=== PATIENT | female | born 1940 | race Hispanic/Latino ===

== ENCOUNTER 2018-06-05 10:44 | Emergency (ER) | payer MEDICARE, BC ==
[2018-06-05 10:45] VITALS: BMI 40.4
[2018-06-05 11:10] VITALS: RESP 16
--- NOTE | 2018-06-05 11:11 | ED PDOC ---
Arrival/HPI - General Chief Complaint: Trauma Time Seen by Provider: 06/05/18 11:01 Historian: Patient - History of Present Illness Narrative History of Present Illness (Text): 06/05/18 11:08 A 77 year old female, whose past medical history includes knee replacements, presents to the emergency department s/p fall from earlier today. Patient reports she fell while leaving the hospital and states it was a mechanical fall. Patient notes bilateral knee pain and states pain is worse on her left knee. Patient denies any pain medication. Patient denies any fever, chills, shortness of breath, chest pain, diarrhea, nausea, vomiting, urinary symptoms, back pain, neck pain, headache, dizziness, or any other complaints. PMD: Dr. Callaway Time/Duration: 4-6 hours (earlier today) Symptom Onset: Sudden Activities at Onset: Light Context: Other (Hospital) Past Medical History - Provider Review Nursing Documentation Reviewed: Yes - Infectious Disease Hx of Infectious Diseases: None - Tetanus Immunization Tetanus Immunization: Unknown - Reproductive Menopause: Yes - Cardiac Hx Pacemaker: No - Pulmonary Hx Respiratory Disorders: Yes Hx Chronic Obstructive Pulmonary Disease (COPD): Yes - Neurological Hx Paralysis: No - HEENT Hx HEENT Disorder: No (WEARS RX GLASSES) - Renal Hx Renal Disorder: No - Endocrine/Metabolic Hx Hypothyroidism: Yes (edgar) - Hematological/Oncological Hx Blood Transfusions: No Hx Blood Transfusion Reaction: No (NA) - Integumentary Hx Dermatological Disorder: No - Musculoskeletal/Rheumatological Hx Musculoskeletal Disorders: No - Gastrointestinal Hx Gastrointestinal Disorders: No (COLON POLYPS WITH SX) Hx Gall Bladder Disease: Yes (CHOLECYSTECTOMY) Hx Gastroesophageal Reflux: Yes - Genitourinary/Gynecological Hx Genitourinary Disorders: Yes (URGENCY,TUBAL LIGATION) - Psychiatric Hx Emotional Abuse: No Hx Physical Abuse: No Hx Substance Use: No - Surgical History Hx Orthopedic Surgery: Yes - Anesthesia Hx Anesthesia: Yes Hx Anesthesia Reactions: No Hx Malignant Hyperthermia: No - Suicidal Assessment Feels Threatened In Home Enviroment: No Family/Social History - Physician Review Nursing Documentation Reviewed: Yes Family/Social History: No Known Family HX Smoking Status: Former Smoker Hx Alcohol Use: Yes (WINE SOCIALLY) Hx Substance Use: No Hx Substance Use Treatment: No Allergies/Home Meds Allergies/Adverse Reactions: Allergies Sulfa (Sulfonamide Antibiotics) Allergy (Severe, Verified 06/05/18 10:53) ANAPHYLAXIS Home Medications: Home Meds Medication Instructions Recorded Confirmed Aspirin [Alfred Aspirin [facility]] 81 mg PO QPM 01/13/12 06/05/18 Levothyroxine [Levoxyl] 0.15 mg PO QAM 01/13/12 06/05/18 Hydroxychloroquine Sulfate 200 mg PO BID 04/18/15 06/05/18 [Plaquenil] Meclizine [Antivert] 25 mg PO PRN PRN 04/18/15 06/05/18 Cyanocobalamin [Vitamin B12 100 100 mcg PO DAILY 01/30/16 06/05/18 mcg Tab] Furosemide [Lasix] 40 mg PO DAILY 01/30/16 06/05/18 Lisinopril [Zestril] 20 mg PO DAILY 01/30/16 06/05/18 RX: [place]-3 Fatty Acids/Fish Oil 1,000 mg PO DAILY 01/30/16 06/05/18 [Fish Oil 1,000 mg Capsule] Pravastatin Sodium [Pravachol] 20 mg PO DAILY 06/05/18 06/05/18 Review of Systems - Physician Review All systems were reviewed & negative as marked: Yes - Review of Systems Constitutional: absent: Fevers, Night Sweats Respiratory: absent: SOB Cardiovascular: absent: Chest Pain Gastrointestinal: absent: Diarrhea, Nausea, Vomiting Genitourinary Female: absent: Urine Output Changes Musculoskeletal: Other (bilateral knee pain). absent: Back Pain, Neck Pain Neurological: absent: Headache, Dizziness Physical Exam Vital Signs Reviewed: Yes Vital Signs Temp Pulse Resp BP Pulse Ox 06/05/18 11:06 98.7 F 77 16 129/71 99 06/05/18 10:47 98.1 F 81 19 208/88 H 98 Temperature: Afebrile Blood Pressure: Hypertensive Pulse: Regular Respiratory Rate: Normal Appearance: Positive for: Well-Appearing, Non-Toxic - Systems Exam Head: Present: Atraumatic, Normocephalic Pupils: Present: PERRL Extroacular Muscles: Present: EOMI Conjunctiva: Present: Normal Respiratory/Chest: Present: Clear to Auscultation, Good Air Exchange. No: Respiratory Distress, Accessory Muscle Use Cardiovascular: Present: Regular Rate and Rhythm, Normal S1, S2. No: Murmurs Abdomen: No: Tenderness, Distention, Peritoneal Signs Back: Present: Normal Inspection Upper Extremity: Present: Normal Inspection. No: Cyanosis, Edema Lower Extremity: Present: Tenderness (+tenderness to knees bilaterally) Neurological: Present: GCS=15, CN II-XII Intact, Speech Normal Skin: Present: Warm, Dry, Normal Color. No: Rashes Psychiatric: Present: Alert, Oriented x 3, Normal Insight, Normal Concentration Medical Decision Making ED Course and Treatment: 06/05/18 11:14 Impression: 77 year old female presenting to the emergency department s/p fall. Plan: -- Xray of Knees bilaterally -- Reassess and disposition Prior Visits: Notes and results from previous visits were reviewed. Progress Notes: 06/05/18 11:59 Upon re-evaluation, patient declined knee immobilizer. 06/05/18 15:35 xr neg pt declines splint - RAD Interpretation Radiology Orders: 06/05/18 11:03 KNEE W PATELLA BILAT 3 VIEW [RAD] Stat - Scribe Statement The provider has reviewed the documentation as recorded by the Scribe Kerry Dela Cruz All medical record entries made by the Scribe were at my direction and personally dictated by me. I have reviewed the chart and agree that the record accurately reflects my personal performance of the history, physical exam, medical decision making, and the department course for this patient. I have also personally directed, reviewed, and agree with the discharge instructions and disposition. Disposition/Present on Arrival - Present on Arrival Any Indicators Present on Arrival: No History of DVT/PE: No History of Uncontrolled Diabetes: No Urinary Catheter: No History of Decub. Ulcer: No History Surgical Site Infection Following: None - Disposition Have Diagnosis and Disposition been Completed?: Yes Diagnosis: Knee sprain Disposition: HOME/ ROUTINE Disposition Time: 12:00 Condition: STABLE Discharge Instructions (ExitCare): Knee Sprain (DC) Additional Instructions: return to er with worsening symptoms or concerns. Prescriptions: RX: Naproxen 500 mg PO BID PRN #14 tablet PRN Reason: Pain, Mild (1-3) Referrals: Hari Callaway MD [Primary Care Provider] - Follow up with primary Rich Moon DO [Staff Provider] - Follow up with primary Forms: [facility] ([place])
--- NOTE | 2018-06-05 12:23 | RAD ---
Date of service: 06/05/2018 PROCEDURE: Bilateral Knee Radiographs. HISTORY: trauma COMPARISON: None. FINDINGS: BONES: Bilateral TKA. JOINTS: Expected findings following bilateral knee replacement SOFT TISSUES: Right Knee: Normal. Left Knee: Normal. JOINT EFFUSION: Right Knee: None. Left Knee: None. OTHER FINDINGS: None. IMPRESSION: Satisfactory postoperative status. No acute findings. Concordant results with the preliminary interpretation rendered by the emergency department physician procedure.
[2018-06-05 12:24] VITALS: BP 187/93; PULSE 83; TEMP 97.9; O2SAT 100
== END 2018-06-05 12:22 | disposition home or self-care (01) ==
LOC: ED 10:44
DX: S83.90XA Sprain of unspecified site of unspecified knee, initial encounter (principal); W19.XXXA Unspecified fall, initial encounter; E03.9 Hypothyroidism, unspecified; J44.9 Chronic obstructive pulmonary disease, unspecified; Z87.891 Personal history of nicotine dependence